=== PATIENT | female | born 1985 | race Caucasian/White ===

== ENCOUNTER 2023-07-13 08:27 | Emergency (ER) | payer OTHER, SELFPAY ==
[2023-07-13 08:46] VITALS: BP 144/88; PULSE 91; RESP 16; TEMP 36.1; O2SAT 98
--- NOTE | 2023-07-13 09:29 | ED.URI ---
HPI - URI/Sore Throat General Chief Complaint: Upper Respiratory Infection Stated Complaint: Cough,Sore Throat,Rt Ear Irritation Time Seen by Provider: 07/13/23 09:06 Source: patient and RN notes reviewed Mode of arrival: ambulatory Limitations: no limitations History of Present Illness HPI Narrative: Patient presents today complaining of a 2 day history of cough, rhinorrhea, sore throat, body aches. Denies fever or shortness of breath. She has been taking Tylenol and ibuprofen, which does provide relief. Related Data Home Medications Medication Instructions Recorded Confirmed No Home Medications 07/13/23 07/13/23 Allergies Allergy/AdvReac Type Severity Reaction Status Date / Time No Known Allergies Allergy Verified 07/13/23 08:42 Review of Systems Review of Systems: CONSTITUTIONAL: Denies fever, chills, or sweats.+ body aches EYES: Denies visual changes, redness, or discharge. ENT: Denies congestion, or otalgia.+ sore throat, rhinorrhea CARDIOVASCULAR: Denies chest pain, palpitations, or edema. RESPIRATORY: Denies dyspnea.+ cough GASTROINTESTINAL: Denies abdominal pain, nausea, vomiting, or diarrhea. GENITOURINARY: Denies dysuria or hematuria. SKIN: Denies rash, itching, or wounds. MUSCULOSKELETAL: Denies back pain, joint pain, or myalgia. NEUROLOGIC: Denies headache, numbness, tingling, or weakness. PSYCH: Denies depression or anxiety. PMFSH Comments At time of signature, I have reviewed and agree with nursing past medical, surgical, social and family history unless otherwise noted. Please see nursing chart for further information. There is no relevant family history pertinent to the presenting complaint Exam Narrative: GENERAL: Mildly ill appearing, well-nourished, and in no acute distress. HEAD: Normocephalic, atraumatic. EYES: EOMI. No redness or drainage. Conjunctivae normal. ENT: Mucous membranes pink and moist. Nares congested. No rhinorrhea. TMs normal bilaterally. Throat normal. Uvula midline. NECK: Normal AROM. Supple. No lymphadenopathy. CHEST: No respiratory distress. Clear to auscultation. HEART: Regular rate and rhythm. No murmur appreciated. EXTREMITIES: Normal range of motion. No edema. SKIN: Warm, dry, no rash. Capillary refill normal. Normal skin turgor. NEURO: No focal deficits. Alert and oriented x3. Gait steady. PSYCH: Normal affect. No signs of depression or anxiety. Course Course Level of Care: Express Care Visit Vital Signs Vital signs: Vital Signs Temperature 96.9 F L 07/13/23 08:46 Pulse Rate 91 07/13/23 08:46 Respiratory Rate 16 07/13/23 08:46 Blood Pressure 144/88 H 07/13/23 08:46 Pulse Oximetry 98 07/13/23 08:46 Oxygen Delivery Room Air 07/13/23 08:46 Temperature 96.9 F L 07/13/23 08:46 Pulse Rate 91 07/13/23 08:46 Respiratory Rate 16 07/13/23 08:46 Blood Pressure 144/88 H 07/13/23 08:46 Pulse Oximetry 98 07/13/23 08:46 Oxygen Delivery Room Air 07/13/23 08:46 Reviewed MDM - URI/Sore Throat MDM Narrative Medical decision making narrative: Influenza a positive. Patient has declined treatment with Tamiflu. Discussed [id number] treatment. Anticipatory guidance given. Differential Diagnosis Differential diagnosis: Likely upper respiratory infection, sinusitis, viral infection, pharyngitis and other (COVID-19, strep throat) Lab Data Attestation: I reviewed the patient's lab results. Labs: Lab Results 07/13/23 Range/Units 09:00 POC SARS CoV-2 Ag Negative (Negative) Influenza A Screen Positive Reference Range: Negative Influenza B Screen Negative Reference Range: Negative Strep Screen Presumptive Negative *(Reference Range: Negative)* Critical Care Time Critical Care Time Critical Care Time: No
== END 2023-07-13 09:39 | disposition home or self-care (01) ==
PROVIDERS: Emergency Provider Nurse Practitioner; PCP Nurse Practitioner Family
DX: J10.1 Influenza due to other identified influenza virus with other respiratory manifestations (principal); Z20.822 Contact with and (suspected) exposure to COVID-19
CPT/HCPCS: 87081; 87426; 87804; 87880; 99203; C9803; G0463

== ENCOUNTER 2025-03-27 08:11 | Emergency (ER) | payer OTHER, SELFPAY ==
--- NOTE | 2025-03-27 08:16 | ED_ITS ---
HPI - Skin/Abscess/Foreign Bdy General Chief complaint: Skin/Abscess/Foreign Body Stated complaint: Skin Irritation Time Seen by Provider: 03/27/25 08:25 Source: patient Mode of arrival: ambulatory Limitations: no limitations History of Present Illness HPI narrative: Lorelei is a 40-year-old female patient presenting to the clinic today with complaints of a skin sore to the right medial thigh x2 days. States she has been getting hair sores frequently on the right lower extremity. States she uses the same razor for the right and left leg and does not develop these here sores on the left leg. Denies any fevers, chills, body aches. Is mildly tender red and swollen with surrounding redness. Area is not itchy. Rates discomfort a 2/10. Related Data Home Medications ?Medication ?Instructions ?Recorded ?Confirmed ?Last Taken ?Type bupropion HCl 150 mg 24 hr tablet, 150 mg PO DAILY 03/27/25 03/27/25 Unknown History extended release hydroxyzine HCl 25 mg tablet 25 mg PO DAILY 03/27/25 03/27/25 Unknown History Allergies Allergy/AdvReac Type Severity Reaction Status Date / Time No Known Allergies Allergy Verified 03/27/25 08:25 PMFSH Comments At the time of my signature, I reviewed and agree with the nursing past medical, surgical, social, and family history. There is no relevant family history pertinent to the patient complaint. Exam Narrative: General: Well-developed, well nourished, in no apparent distress Head: Normocephalic, atraumatic. Cardio: Regular rate and rhythm, s1 and s2 normal, no murmur appreciated. Resp: Clear to auscultation bilaterally, no rhonchi, rales, wheezing or rubs. Integumentary: [place], warm, and dry, 1 x 1 cm indurated, nonfluctuant, red, mildly tender, papule without pustule head to the right medial thigh with localized redness surrounding measuring approximately 2 cm outward of the sore, no itching Course Course Emergency Course: Portions of this record may have been created with voice recognition software. Level of Care: Express Care Visit Vital Signs Vital signs: Vital signs reviewed MDM - Skin/Abscess/Foreign Bdy MDM Narrative Medical decision making narrative: At the time of visit patient is resting comfortably on the exam table. Patient appears to be nontoxic. Complaints of a skin sore to the right medial thigh x2 days. States she has been getting hair sores frequently on the right lower extremity. States she uses the same razor for the right and left leg and does not develop these here sores on the left leg. Denies any fevers, chills, body aches. Is mildly tender red and swollen with surrounding redness. Area is not itchy. Rates discomfort a 2/10. On exam patient has a 1 x 1 cm indurated, nonfluctuant, red, mildly tender, papule sore to the right medial thigh with localized redness surrounding measuring approximately 2 cm outward of the sore Plan: I suspect patient has a skin bacterial infection. Prescription for doxycycline was sent to the pharmacy. Recommend doing warm compresses to the area 4-6 times daily. Supportive measures were discussed with the patient and they voiced understanding discharge instructions and agrees to treatment plan. Return precautions reviewed Differential Diagnosis Differential diagnosis: Likely abscess of skin or subcutaneous tissue, viral exanthem, dermatophytosis, urticaria, herpes zoster, allergic reaction to drug, cellulitis, eczema, insect bites, impetigo and contact dermatitis Discharge Plan Discharge Clinical Impression: Bacterial infection of skin Patient Disposition: Home Condition: Stable Instructions: Antibiotic Form, Abscess (ED) Additional Instructions: Keep area clean and dry Wash daily with soap and water Take doxycycline as prescribed Change your razor May apply warm moist compresses to the area for 15 minutes at a time 4-6 times daily Watch for signs and symptoms of worsening infection-fever not controlled by Tylenol or Motrin, increased and redness, streaking, swelling, purulent discharge, or increase in pain. Follow up with your PCP in 3-5 days if symptoms persist or sooner if they worsen. Go to the emergency room for any signs/symptoms of worsening infection Patient Language: Nepalese Prescriptions: New doxycycline monohydrate 100 mg capsule 100 mg PO BID 7 Days Qty: 14 0RF No Action bupropion HCl 150 mg tablet extended release 24 hr 150 mg PO DAILY hydroxyzine HCl 25 mg tablet 25 mg PO DAILY Follow-up/Referrals: Talon,Reta Yung APRN [Primary Care Provider] - Time of Disposition: 08:34 [employer] Nursing Documentation ED [facility] nursing documentation: reviewed/agree
[2025-03-27 08:21] VITALS: BP 119/86; PULSE 91; RESP 16; TEMP 36.4; O2SAT 100
== END 2025-03-27 08:38 | disposition home or self-care (01) ==
PROVIDERS: Emergency Provider Nurse Practitioner Family; PCP Nurse Practitioner Family
DX: L08.9 Local infection of the skin and subcutaneous tissue, unspecified (principal); B96.89 Other specified bacterial agents as the cause of diseases classified elsewhere; F41.9 Anxiety disorder, unspecified; Z86.16 Personal history of COVID-19
CPT/HCPCS: 99213; G0463